=== PATIENT | male | born 1965 ===

== ENCOUNTER 2018-10-15 14:18 | Emergency (ER) | payer OTHER ==
[2018-10-15] MEDS ORDERED: Aspirin 81 mg CHEW TAB* 81 MG TAB.CHEW PO ONE (14:41)
--- NOTE | 2018-10-15 14:50 | ED ---
HPI Chest Pain - HPI Summary HPI Summary: This patient is a 49 year old F presenting to [facility] accompanied by his with a chief complaint of mid-left anterior chest pain radiating into the arms and abdomen and between the shoulder lasting for 2 minutes at 0800 this morning. Pain is currently resolved. Denies current abdominal pain. Patient reports he has had similar symptoms previously and has been instructed to come to the ED when the symptoms return. He reports having a stress test done roughly 10 years ago. Denies history of HTN and DM. Positive PMHx of hypercholesterolemia. Patient denies smoking. - History of Current Complaint Chief Complaint: EDChestPainROMI Time Seen by Provider: 10/15/18 14:31 Hx Obtained From: Patient Onset/Duration: Started Hours Ago, Worse Since Timing: Lasting Minutes Pain Intensity: 0 Pain Scale Used: 0-10 Numeric Chest Pain Location: Left Anterior Chest Pain Radiates: Yes Chest Pain Radiates To:: Back, Arm, Epigastric Aggravating Factor(s): Nothing Alleviating Factor(s): Spontaneous Resolution - Allergy/Home Medications Allergies/Adverse Reactions: Allergies Allergy/AdvReac Type Severity Reaction Status Date / Time Tetracyclines Allergy Shakes Verified 10/15/18 14:30 PMH/Surg Hx/FS Hx/Imm Hx Endocrine/Hematology History: Denies: Hx Diabetes Cardiovascular History: Reports: Hx Hypercholesterolemia Denies: Hx Hypertension - Surgical History Surgery Procedure, Year, and Place: TONSILLECTOMY Infectious Disease History: No Infectious Disease History: Denies: Traveled Outside the [place] in Last 30 Days - Family History Known Family History: Positive: Cardiac Disease, Hypertension, Diabetes - Social History Alcohol Use: Occasionally Substance Use Type: Reports: None Smoking Status (MU): Never Smoked Tobacco Review of Systems Positive: Chest Pain Positive: Abdominal Pain Positive: Myalgia - back pain All Other Systems Reviewed And Are Negative: Yes Physical Exam - Summary Physical Exam Summary: Appearance: Well appearing, no pain distress Skin: warm, dry, reflects adequate perfusion Head/face: normal Eyes: EOMI, [place] ENT: normal Neck: supple, non-tender Respiratory: CTA, breath sounds present Cardiovascular: RRR, pulses symmetrical Abdomen: non-tender, soft Musculoskeletal: normal, strength/ROM intact Neuro: normal, sensory motor intact, A&Ox3 Triage Information Reviewed: Yes Vital Signs On Initial Exam: Initial Vitals Temp Pulse Resp BP Pulse Ox 97.2 F 68 16 169/97 99 10/15/18 14:25 10/15/18 14:25 10/15/18 14:25 10/15/18 14:25 10/15/18 14:25 Vital Signs Reviewed: Yes Diagnostics - Vital Signs Vital Signs Temp Pulse Resp BP Pulse Ox 10/15/18 14:25 97.2 F 68 16 169/97 99 - Laboratory Result Diagrams: 10/15/18 15:28 10/15/18 15:28 Lab Statement: Any lab studies that have been ordered have been reviewed, and results considered in the medical decision making process. - Radiology CXR Radiology Interpretation Completed By: Radiologist Summary of Radiographic Findings: NO EVIDENCE FOR ACUTE DISEASE. ED Physician has reviewed this report. - CT Chest/A/P CT Interpretation Completed By: Radiologist Summary of CT Findings: NO EVIDENCE FOR AORTIC DISSECTION OR ACUTE FINDING. ED Physician has reviewed this report. - EKG 1430 Cardiac Rate: NL - 64 BPM EKG Rhythm: Sinus Rhythm Ectopy: None Summary of EKG Findings: No acute changes. Re-Evaluation - Re-Evaluation First Re-Evaluation Time: 17:14 Change: Unchanged - Current results discussed with patient. Informed patient of further wait for pending trponin results. Chest Pain Course/Dx - Course Course Of Treatment: 49 year old F presenting with mid-left anterior chest pain radiating into the arms and abdomen and between the shoulder lasting for 2 minutes at 0800 this morning. Patient reports he has had similar symptoms previously and has been instructed to come to the ED when the symptoms return. Patient is given 324mg ASA. EKG reveals NSR at [address] Chest/Abdomen /Pelvis are both negative for acute disease and aotric dissection. Bloodwork obtained without significant abnormalities. Results discussed with patient and he doesnt want to get admitted so discharged and instructed to follow up with his primary care provider. humaira. if symptoms persists to come back to er immediately. - Chest Pain Differential Diagnosis/HQI/PQRI: Angina, Chest Wall, Lower Respiratory Infection - Diagnoses Provider Diagnoses: Atypical chest pain Discharge - Sign-Out/Discharge Documenting (check all that apply): Patient Departure - discharge Patient Received Moderate/Deep Sedation with Procedure: No - Discharge Plan Condition: Stable Disposition: HOME Patient Education Materials: Chest Pain (ED) Referrals: Tin Bedolla MD [Primary Care Provider] - 2 Days Additional Instructions: RETURN TO THE EMERGENCY DEPARTMENT FOR CHANGING OR WORSENING SYMPTOMS. - Billing Disposition and Condition Condition: STABLE Disposition: Home - Attestation Statements Document Initiated by Jonny: Yes Documenting Scribe: Chula Berry Provider For Whom Preciousibe is Documenting (Include Credential): Kraig Mueller MD Scribe Attestation: I[place], scribed for Kraig Mueller MD on 10/15/18 at 1850. Scribe Documentation Reviewed: Yes Provider Attestation: The documentation as recorded by the Chula tenorio accurately reflects the service I personally performed and the decisions made by Kraig heard MD Status of Scribe Document: Viewed
[2018-10-15 15:54] LABS: ABS Basophils 0 10^3/ul (0-0.2); ABS Eosinophils 0.1 10^3/ul (0-0.6); ABS Lymphocytes 1.8 10^3/ul (1.0-4.8); ABS Monocytes 0.4 10^3/ul (0-0.8); ABS Neutrophils 3.2 10^3/ul (1.5-7.7); ABS Nucleated RBC 0 10^3/ul; Eosinophil % 1.8 %; Hematocrit 46 % (42-52); Hemoglobin 15.7 g/dl (14.0-18.0); Lymphocyte % 32.8 %; Mean Corpuscular HGB Conc 34 g/dl (31-36); Mean Corpuscular Hemoglobin 30 pg (27-31); Mean Corpuscular Volume 86 fL (80-94); Mean Platelet Volume 7.8 fL (7.4-10.4); Nucleated Red Blood Cells % 0.1; Platelet Count 226 10^3/ul (150-450); Red Blood Count 5.31 10^6/ul (4.00-5.40); Red Cell Distribution Width 14 % (10.5-15); White Blood Count 5.4 10^3/ul (3.5-10.8)
[2018-10-15 16:02] LABS: Activated Partial Thrombo Time 31.4 seconds (26.0-36.3); INR 0.87 (0.77-1.02)
[2018-10-15 16:10] LABS: Albumin 4.5 g/dL (3.2-5.2); Albumin/Globulin Ratio 1.9 (1-3); BUN/Creatinine Ratio 15.9 (8-20); Calcium 9.5 mg/dL (8.6-10.3); EGFR African American 88.2 (>60); EGFR Non-African American 72.9 (>60); Globulin 2.4 g/dL (2-4); Potassium 3.9 mmol/L (3.5-5.0); Total Bilirubin 0.4 mg/dL (0.2-1.0); Total Protein 6.9 g/dL (6.4-8.9)
[2018-10-15] MEDS ORDERED: Iohexol 350* (CONTRAST) 500 ML MDV IV ONE (16:21)
== END 2018-10-15 18:42 | disposition home or self-care (01) ==
LOC: ED 14:18
DX: R07.89 Other chest pain (principal); R10.13 Epigastric pain; M54.9 Dorsalgia, unspecified; Z88.1 Allergy status to other antibiotic agents
CPT/HCPCS: 36415; 71045; 71275; 74174; 80053; 83690; 83880; 84484; 85025; 85610; 85730; 93005; 99282; A9270-GY; Q9967